=== PATIENT | female | born 1975 | race Caucasian/White ===

== ENCOUNTER 2019-03-25 08:23 | Emergency (ER) | payer OTHER ==
[~2019-03-25] VITALS: Ht 167.6 cm; Wt 86.0 kg
[~2019-03-25 08:23] MED LIST: CLINDAMYCIN; GLUMETZA500; HYDROCODON-ACE1 EA11; IBUPROFEN 800800 M1; MEDROLDOSEPACK; ZOCOR
[2019-03-25] MEDS ORDERED: ADDERALL 20 MG20 MG PO (08:34)
[2019-03-25] MEDS ORDERED: AMARYL2 MG PO (08:35)
[2019-03-25 08:49] LABS: ABSOLUTE BASOPHILS 0.1 thou/uL (0.0-0.2); ABSOLUTE EOSINOPHILS 0.3 thou/uL (0.0-0.7); ABSOLUTE LYMPHOCYTES 2.1 thou/uL (0.8-5.3); ABSOLUTE MONOCYTES 0.4 thou/uL (0.0-1.2); ABSOLUTE NEUTROPHILS 3.9 thou/uL (1.6-8.1); BASOPHILS 1.2 %; EOSINOPHILS 4.8 %; HEMATOCRIT 45.3 % (37.0-47.0); HEMOGLOBIN 15.7 gm/dL (12.0-15.0); MCH 29.8 pg (26.0-34.0); MCHC 34.7 g/dL (28.0-37.0); MCV 85.9 fL (80.0-100.0); MONOCYTES 6.1 %; MPV 8.5 fl. (7.2-11.1); NUCLEATED RBCS 0 /100WBC; PLATELET COUNT* 340 thou/uL (150-400); POLYS 56.9 %; RBC 5.28 mil/uL (4.20-5.00); WBC 6.8 thou/uL (4.0-11.0)
[2019-03-25 08:53] LABS: ANION GAP 8 mmol/L (7-16); BUN 11 mg/dL (7-18); CALCIUM 8.8 mg/dL (8.5-10.1); CHLORIDE 103 mmol/L (98-107); CO2 25 mmol/L (21-32); CREATININE 0.4 mg/dL (0.6-1.3); GLUCOSE 261 mg/dL (70-99); POTASSIUM 5.9 mmol/L (3.5-5.1); SODIUM 136 mmol/L (136-145)
[2019-03-25 09:08] LABS: ALBUMIN 3.4 g/dL (3.4-5.0); LIPASE 180 U/L (73-393); NT-PRO BRAIN NAT PEPTIDE 41 pg/mL (<300); TOTAL BILIRUBIN 0.9 mg/dL (<0.1-1.0); TOTAL PROTEIN 7.8 g/dL (6.4-8.2); TROPONIN-I LEVEL <0.06 ng/mL (<0.06)
[2019-03-25 09:11] LABS: INR 0.9; PROTIME 9.6 Seconds (9.20-11.50)
[2019-03-25 09:24] LABS: SGOT 40 U/L (15-37); SGPT 30 U/L (30-65)
[2019-03-25 09:30] LABS: BE -1.7 mmol/L (-2 to +3); PCO2 41.7 mmHg (35.0-45.0); pH 7.369 (7.340-7.450)
[2019-03-25 09:32] LABS: PO2 140.9 mmHg (75.0-100.0)
[2019-03-25 09:35] LABS: ALKALINE PHOSPHATASE 111 U/L (46-116)
[2019-03-25 11:12] LABS: TROPONIN-I LEVEL <0.06 ng/mL (<0.06)
[2019-03-25 11:13] LABS: POTASSIUM 3.8 mmol/L (3.5-5.1)
[2019-03-25] MEDS ORDERED: OMEPRAZOLE40 MG PO (12:00)
[2019-03-25] MEDS ORDERED: CARAFATE 1 GM TA1 GM PO (12:00)
[2019-03-25 12:50] VITALS: BP 142/78
--- NOTE | 2019-03-25 15:22 | EKG ---
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1975 Requested By: Kayla Melgar Order Number: [id number] MD: David Zavala Measurements Intervals [place] Rate: 65 P: 54 VT: 166 QRS: 53 QRSD: 100 T: 52 QT: 414 QTc: 431 Interpretive Statements Sinus rhythm RSR' in V1 or V2, probably normal variant Baseline wander in lead(s) V5,V6 No previous ECG available for comparison Electronically Signed On 03-25-2019 15:22:38 CDT by David Zavala [email or web address] <ELECTRONICALLY SIGNED> By: David Zavala MD, [facility] 03/25/19 1522 7 David Zavala MD, [facility] /EPI
[2019-03-26 03:06] LABS: GLYCOHEMOGLOBIN (HGB A1C) 9.6 % (4.8-5.6)
== END 2019-03-25 12:50 | disposition home or self-care (01) ==
LOC: M.ERS 08:23
PROVIDERS: Personal Emergency Response Attendant
DX: R07.89 Other chest pain (principal); G43.909 Migraine, unspecified, not intractable, without status migrainosus; F17.210 Nicotine dependence, cigarettes, uncomplicated; Z88.5 Allergy status to narcotic agent; Z88.8 Allergy status to other drugs, medicaments and biological substances; Z79.899 Other long term (current) drug therapy

== ENCOUNTER 2019-05-26 21:28 | Emergency (ER) | payer OTHER ==
[~2019-05-26] VITALS: Ht 167.6 cm; Wt 83.5 kg
[~2019-05-26 21:28] MED LIST changes: +ADDERALL 20 MG20 MG PO; +AMARYL2 MG PO; +CARAFATE 1 GM TA1 GM PO; +OMEPRAZOLE40 MG PO
[2019-05-26] MEDS ORDERED: GLYBURIDE 5 MG T5 M1 PO (21:46)
[2019-05-26 21:57] LABS: ABSOLUTE BASOPHILS 0.1 thou/uL (0.0-0.2); ABSOLUTE EOSINOPHILS 0.1 thou/uL (0.0-0.7); ABSOLUTE LYMPHOCYTES 1.8 thou/uL (0.8-5.3); ABSOLUTE MONOCYTES 0.4 thou/uL (0.0-1.2); ABSOLUTE NEUTROPHILS 8.2 thou/uL (1.6-8.1); BASOPHILS 0.9 %; EOSINOPHILS 1.1 %; HEMATOCRIT 43.9 % (37.0-47.0); LYMPHOCYTES 16.9 %; MCH 29.2 pg (26.0-34.0); MCHC 34.1 g/dL (28.0-37.0); MCV 85.7 fL (80.0-100.0); MONOCYTES 3.5 %; MPV 8.3 fl. (7.2-11.1); NUCLEATED RBCS 0 /100WBC; PLATELET COUNT* 311 thou/uL (150-400); POLYS 77.6 %; RBC 5.13 mil/uL (4.20-5.00); RDW-CV 12.9 % (10.5-14.5); WBC 10.6 thou/uL (4.0-11.0)
[2019-05-26 22:09] LABS: CALCIUM 9.7 mg/dL (8.5-10.1); CREATININE 0.5 mg/dL (0.6-1.3); POTASSIUM 4.2 mmol/L (3.5-5.1)
[2019-05-26 22:14] LABS: ALBUMIN 3.7 g/dL (3.4-5.0); TOTAL BILIRUBIN 0.4 mg/dL (<0.1-1.0)
[2019-05-26 23:35] LABS: URINE BILIRUBIN NEGATIVE (Negative); URINE BLOOD NEGATIVE (Negative); URINE CLARITY CLEAR; URINE COLOR YELLOW; URINE GLUCOSE-RANDOM 2+ (Negative); URINE KETONES TRACE (Negative); URINE LEUKOCYTES-REFLEX NEGATIVE (Negative); URINE NITRITE-REFLEX NEGATIVE (Negative); URINE PROTEIN NEGATIVE (Negative); URINE UROBILINOGEN 0.2 E.U./dl (0.2-1.0)
[2019-05-27] MEDS ORDERED: NORCO 5-325 TA1 EAC1 PO (00:03)
[2019-05-27] MEDS ORDERED: ZOFRAN ODT4 MG DISSOLVE (00:03)
[2019-05-27] MEDS ORDERED: BENTYL 20 MG TA20 M1 PO (00:03)
[2019-05-27 00:27] VITALS: BP 141/79
--- NOTE | 2019-05-27 13:23 | EKG ---
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
== END 2019-05-27 00:30 | disposition home or self-care (01) ==
LOC: M.ERS 21:28
PROVIDERS: Emergency Medicine Emergency Medical Services
DX: K52.9 Noninfective gastroenteritis and colitis, unspecified (principal); G43.909 Migraine, unspecified, not intractable, without status migrainosus; F17.210 Nicotine dependence, cigarettes, uncomplicated; Z88.5 Allergy status to narcotic agent; Z88.8 Allergy status to other drugs, medicaments and biological substances